=== PATIENT | male | born 1950 | race Two or more races ===

== ENCOUNTER → 2017-08-28 | Outpatient (CLI) | payer MEDICARE ==
[~2017-08-28] MED LIST: ASPI81TA94 PO; ATOR40TA24 PO; BIMA2.5D5 OP; CIPR-344 PO; GLUC100026 PO; LATODPT OD; MULT-27 PO; NO RX; OMEG-108 PO; PNEU0.5D3 IM; PSYL0.5235 PO; SAW160CA26 PO
[2017-08-28 15:32] LABS: PLATELET COUNT, AUTOMATED 394 K/uL (150-450)
--- NOTE | 2017-08-28 15:45 | RADIOLOGY IMAGING REPORT ---
FACILITY: [facility] PATIENT NAME: Wei Angela : 1950 MR: [id number] V: [id number] EXAM DATE: ORDERING PHYSICIAN: JOE DELGADO TECHNOLOGIST: Location: [facility] Patient: Wei Angela : 1950 Visit/Account:[id number] Date of Sevice: 08/28/2017 Exam type: CHEST PA AND LAT History: smoking Comparison: None. Findings: There is mild hyperinflation of the lung weeks. There is no evidence of focal infiltrates, pleural effusions or pulmonary edema. Cardiac silhouette is normal in size. The trachea is in midline. The re are postsurgical changes of the right shoulder IMPRESSION: 1. Mild hyperinflation of the lung weeks although no evidence of acute pulmonary consolidation Report Dictated By: Kathy Grissom MD at 08/28/2017 3:39 PM Report E-Signed By: Kathy Grissom MD at 08/28/2017 3:40 PM WSN:[email or web address]
== END ==
LOC: LAB 15:05
PROVIDERS: ATTEND Internal Medicine
DX: Z12.5 Encounter for screening for malignant neoplasm of prostate (principal); R91.8 Other nonspecific abnormal finding of lung field; N40.0 Benign prostatic hyperplasia without lower urinary tract symptoms; E78.5 Hyperlipidemia, unspecified; Z87.891 Personal history of nicotine dependence
CPT/HCPCS: 36415; 71046; 81001; 82040; 82247; 82310; 82374; 82435; 82565; 82947; 84075; 84132; 84153; 84155; 84295; 84443; 84450; 84460; 84520; 85025

== ENCOUNTER → 2017-09-05 | Outpatient (CLI) | payer MEDICARE | LOC: RESP 03:41 | PROVIDERS: ATTEND Internal Medicine | DX: J98.4 Other disorders of lung (principal) | CPT/HCPCS: 94060; 94726; 94729 ==

== ENCOUNTER → 2017-09-15 | Outpatient (CLI) | payer MEDICARE | LOC: LAB 08:43 | PROVIDERS: ATTEND Internal Medicine | DX: N40.0 Benign prostatic hyperplasia without lower urinary tract symptoms (principal); N41.9 Inflammatory disease of prostate, unspecified | CPT/HCPCS: 36415; 81001; 84153; 87088 ==

== ENCOUNTER 2018-02-24 01:00 | Day surgery (SDC) | payer MEDICARE ==
[~2018-02-24] VITALS: Ht 168.9 cm; Wt 62.1 kg
[~2018-02-24 01:00] MED LIST changes: +TAMS0.4C25 PO
[2018-02-24] MEDS ORDERED: NORMOSOL R SOLN(*) 1000 ML BAG 1,000 ML IV PRN (07:45)
[2018-02-24] MEDS ORDERED: LIDOCAINE/SOD BICARB 8.4% SYR ID ONE (07:45)
[2018-02-24 07:55] VITALS: BP 141/79
[2018-02-24 09:56] VITALS: BP 111/67
--- NOTE | 2018-02-24 09:58 | Short(Outpt) Discharge Summary ---
Discharge Summary Reason for Hosp/Final Diag: (1) Colon cancer screening Status: Chronic Hospital Course & Plan: Colonoscopy with polypectomy x4 completed without problems. Departure Discharge to: Home, Self Care Discharge Instructions Home Meds Active Scripts Atorvastatin Calcium (LIPITOR) 40 Mg Tablet, 1 TAB PO QDAY, #90 TAB 4 Refills Prov:LISBET TURCIOS MD 05/09/17 Reported Medications Tamsulosin Hcl (FLOMAX) 0.4 Mg Cap.er.24h, 0.4 MG PO DAILY, CAP 02/06/18 Latanoprost (TRAVATAN Z) 2.5 Ml Soln, 1 DROP OD QDAY 08/28/17 Psyllium Husk (FIBER) Unknown Strength Capsule, PO, CAPSULE 11/25/16 Mu-Vits-Min Th/Lycopene/Lutein (CENTRUM SILVER TABLET) Unknown Strength Tablet, PO 11/25/16 Aspirin (ASPIRIN) 81 Mg Tab.chew, 81 MG PO QDAY, TAB.CHEW 11/25/16 Diet: Regular Activity: As Tolerated Special Instructions: Your colonoscopy was completed without problems and your prep was excellent (Good Job!!). I removed 4 polyps from your colon and they were sent to pathology. My office will call you in the next week or two and let you know what the polyps are and when your next colonoscopy should be (in 5 or 10 years) depending on what the pathology results reveal. NI LATIF MD Feb 24, 2018 09:58
[2018-02-24 10:30] VITALS: BP 132/61
[2018-02-24 11:00] VITALS: BP 120/85
[2018-02-24 11:04] VITALS: BP 107/76
== END 2018-02-24 11:20 | disposition home or self-care (01) ==
LOC: OR 01:00
PROVIDERS: ATTEND Surgery
DX: Z12.11 Encounter for screening for malignant neoplasm of colon (principal); D12.5 Benign neoplasm of sigmoid colon; K63.5 Polyp of colon
CPT/HCPCS: 88305

== ENCOUNTER → 2018-04-17 | Outpatient (CLI) | payer MEDICARE ==
[~2018-04-17] MED LIST changes: +FLU60SYR36 IM; +PNEI IJ
[2018-04-17 10:11] LABS: LDL CHOLESTEROL 82 mg/dl
[2018-04-17 10:14] LABS: PLATELET COUNT, AUTOMATED 226 K/uL (150-450)
== END ==
LOC: LAB 09:45
PROVIDERS: ATTEND Internal Medicine
DX: E78.5 Hyperlipidemia, unspecified (principal); J43.8 Other emphysema
CPT/HCPCS: 36415; 82040; 82247; 82310; 82374; 82435; 82465; 82565; 82947; 83718; 84075; 84132; 84155; 84295; 84443; 84450; 84460; 84478; 84520; 85025

== ENCOUNTER → 2018-05-08 | Outpatient (REF) | payer MEDICARE | LOC: ZZSENDIN 12:00 | PROVIDERS: ATTEND Urology | DX: R97.20 Elevated prostate specific antigen [PSA] (principal) | CPT/HCPCS: 88305; 88344 ==